=== PATIENT | female | born 1955 | race Caucasian/White ===

== ENCOUNTER 2019-07-30 16:01 | Emergency (ER) | payer MEDICAID ==
[~2019-07-30] VITALS: Ht 167.6 cm; Wt 68.0 kg
[2019-07-30] MEDS ORDERED: Methocarbamol 750mg tab ORAL ONE (16:45)
[2019-07-30] MEDS ORDERED: Ketorolac 30mg Inj IM ONE (16:45)
[2019-07-30] MEDS ORDERED: ROBAXIN-500MG ORAL (16:55)
[2019-07-30] MEDS ORDERED: IBUPROFEN400 MG ORAL (16:55)
--- NOTE | 2019-07-30 16:55 | Emergency Room Report ---
History of Present Illness General Chief Complaint: Upper Extremity Injury Source: Patient Present Illness HPI 64-year-old Mauritian-speaking female with history of arthritis and joint deformity here complaining of pain and deformity of right rates middle finger that started today. Patient reports that she tried to grab something heavy however she was unable to undo the flexion of her right ring finger afterwards. Patient usually takes ibuprofen for pain however is not working right nonradiating at 10. Denies any tingling numbness. Denies all other associate symptoms. Allergies: Coded Allergies: No Known Allergies (Unverified , 07/30/19) COVID-19 Screening Contact w/high risk pt: No Recent Travel to affected area: No Experienced COVID-19 symptoms?: No COVID-19 Testing performed [employer]ST[employer]: No Patient History Past Medical History: see triage record Past Surgical History: none Pertinent Family History: none Now: No Immunizations: UTD Reviewed Nursing Documentation: PMH: Agreed; PSxH: Agreed Review of Systems All Other Systems: negative except mentioned in HPI Physical Exam Vital Signs Date Time Temp Pulse Resp B/P (MAP) Pulse Ox O2 Delivery O2 Flow Rate FiO2 07/30/19 16:07 98.2 81 19 150/89 (109) 98 Room Air Sp02 EP Interpretation: reviewed, normal General Appearance: no apparent distress, alert, GCS 15, non-toxic Head: normocephalic, atraumatic Eyes: bilateral eye normal inspection, bilateral eye PERRL ENT: hearing grossly normal, normal pharynx, no angioedema, normal voice Neck: full range of motion, supple/symm/no masses Respiratory: chest non-tender, lungs clear, normal breath sounds, speaking full sentences Cardiovascular #1: regular rate, rhythm, no edema Cardiovascular #2: 2+ radial (R), 2+ radial (L) Gastrointestinal: normal bowel sounds, non tender, soft, non-distended, no guarding, no rebound Rectal: deferred Genitourinary: no CVA tenderness Musculoskeletal: other - Flexion of the right middle finger Neurologic: alert, motor strength/tone normal, oriented x3, sensory intact, responsive, speech normal Psychiatric: judgement/insight normal, memory normal, mood/affect normal, no suicidal/homicidal ideation Skin: no rash Lymphatic: no adenopathy Medical Decision Making PA Attestation All my diagnosis and treatment plans were reviewed ad discussed with my supervising physician Dr. Nevarez Diagnostic Impression: Primary Impression: Finger deformity ER Course 64-year-old Mauritian-speaking female with history of arthritis and joint deformity here complaining of pain and deformity of right rates middle finger that started today. Patient reports that she tried to grab something heavy however she was unable to undo the flexion of her right ring finger afterwards. Patient usually takes ibuprofen for pain however is not working right nonradiating at 10. Denies any tingling numbness. Denies all other associate symptoms. Ddx considered but are not limited to: Hand sprain, hand sprain, hand fracture, arthritis Vital signs: are WNL, pt. is afebrile H&PE are most consistent with : Finger deformity due to arthritis ORDERS: Hand x-ray, Robaxin, Motrin ED INTERVENTIONS: Toradol, Robaxin DISCHARGE: At this time pt. is stable for d/c to home. Will provide printed patient care instructions, and any necessary prescriptions. Care plan and follow up instructions have been discussed with the patient prior to discharge. Follow-up primary doctor for referral to operations systems specialist, take medication as directed, if worsening symptoms return to emergency room. Patient was able to extend her fingers after most relaxant was given Other X-Ray Diagnostic Results Other X-Ray Diagnostic Results : X-Ray ordered: Right hand # of Views/Limited Vs Complete: 3 View Indication: Pain EP Interpretation: Yes PA Xray: Interpretation reviewed, by supervising MD, and agrees with findings. Interpretation: no dislocation, no soft tissue swelling, no fractures Impression: No acute disease Electronically Signed by: Carlos ORTEGA Scribe Text Flexion of right middle finger Last Vital Signs Date Time Temp Pulse Resp B/P (MAP) Pulse Ox O2 Delivery O2 Flow Rate FiO2 07/30/19 16:07 98.2 81 19 150/89 (109) 98 Room Air Disposition: HOME, SELF-CARE Condition: Stable Scripts Ibuprofen* (MOTRIN*) 400 Mg Tablet 400 MG ORAL Q8H, #30 TAB 0 Refills Prov: Carlos Salamanca 07/30/19 Methocarbamol* (ROBAXIN-500*) 500 Mg Tablet 500 MG ORAL TID PRN for For Pain, #15 TAB 0 Refills Prov: Carlos Salamanca 07/30/19 Patient Instructions: Osteoarthritis Additional Instructions: Indication as directed, follow primary doctor for referral to operations systems specialist, if worsening symptoms return to emergency room Carlos Salamanca July 30, 2019 16:55
--- NOTE | 2019-07-30 16:58 | Diagnostic Imaging Report ---
EXAM: X-RAY XRAY Fingers 2-3v R CLINICAL HISTORY: Trauma with finger pain. COMPARISON: None FINDINGS: Total of 2 views of the right fingers were obtained. The third finger is held in flexion. Patient is unable to extend. Bony structures appear intact. Joint spaces appear anatomic including the proximal interphalangeal joint which is held in flexion. Surrounding soft tissue is normal. IMPRESSION: THIRD FINGER HELD IN FLEXION BUT NO DISCRETE BONY ABNORMALITY SEEN. NO DISLOCATION.
--- NOTE | 2019-07-30 17:00 | NUR ---
ER DISCHARGE NOTE: Patient is cleared to be discharged per ERMD, pt is aox4, on room air, with stable vital signs. pt was given dc and prescription instructions, pt was able to verbalize understanding, pt is able to ambulate with steady gait. pt took all belongings.
[2019-07-30 17:03] VITALS: BP 150/89
== END 2019-07-30 17:00 | disposition home or self-care (01) ==
LOC: EMR 16:40
DX: M21.241 Flexion deformity, right finger joints (principal)
CPT/HCPCS: 73140; 96372; J1885; Z7502; 99283